=== PATIENT | female | born 1930 | race Caucasian/White ===

== ENCOUNTER 2017-02-10 16:23 | Inpatient (IN) | payer MEDICARE, BC ==
[2017-02-10 17:32] LABS: HEMATOCRIT 39 % (35-47); MEAN CORPUSCULAR HGB CONC 30.3 gm/dl (32.0-36.0)
[2017-02-10 17:37] LABS: MEAN CORPUSCULAR VOLUME 109 fL (81-99)
[2017-02-10 17:55] LABS: ALBUMIN 3.2 gm/dl (3.4-5.0); CALCIUM 7.6 mg/dl (8.5-10.1); THYROID STIMULATING HORMONE 13.001 uIU/ml (0.358-3.740)
[2017-02-10 17:56] LABS: POTASSIUM 4.5 mMol/L (3.5-5.1)
[2017-02-10] MEDS ORDERED: ALBUTEROL/IPRATROPIUM 1 VIAL SOL INH ONE (18:12)
[2017-02-10] MEDS ORDERED: ALBUTEROL/IPRATROPIUM 1 VIAL SOL ONE (18:17)
[2017-02-10 18:36] LABS: BASOPHILS % (MANUAL) 0 % (0-3); EOSINOPHILS % (MANUAL) 1 % (0-9); LYMPHOCYTES % (MANUAL) 10 % (10-50)
[2017-02-10 18:37] LABS: ANISOCYTOSIS MOD AMT
[2017-02-10 18:56] LABS: APPEARANCE,URINE Clear; BILIRUBIN,URINE NEGATIVE (NEGATIVE); COLOR,URINE Yellow; GLUCOSE, URINE (UA) NEGATIVE (NEGATIVE); KETONES,URINE NEGATIVE (NEGATIVE); LEUKOCYTE ESTERASE ,URINE TRACE (NEGATIVE); NITRATE,URINE NEGATIVE (NEGATIVE); OCCULT BLOOD,URINE NEGATIVE (NEG-TRACE); UROBILINOGEN,URINE 0.2 (0.2-1.0 EU)
[2017-02-10 19:15] LABS: RBC,URINE 0-1 (0-3AV/HPF)
[2017-02-10] MEDS ORDERED: DOCUSATE SODIUM 100 MG SGL PO PRN (20:52)
[2017-02-10] MEDS ORDERED: CALCIUM CARBONATE PO SCH (21:00)
[2017-02-10] MEDS ORDERED: FUROSEMIDE 40 MG TAB PO SCH (21:00)
[2017-02-10] MEDS ORDERED: VITAMIN D3 PO SCH (21:00)
[2017-02-10] MEDS ORDERED: [UNRECOGNIZED DRUG - OTHER] PO SCH (21:00)
[2017-02-10] MEDS: ASPIRIN EC 81 MG PO SCH (21:26)
[2017-02-10] MEDS: ASCORBIC ACID/COPPER/VITAMIN SGL PO SCH (21:29)
[2017-02-10] MEDS: ROPINIROLE HYDROCHLORIDE 0.25 MG PO SCH (21:29)
[2017-02-10] MEDS: METOPROLOL SUCCINATE 50 MG ER TAB PO SCH (21:29)
[2017-02-10] MEDS: ISOSORBIDE MONONITRATE 30 MG TER PO SCH (22:00)
[2017-02-10] MEDS: ALBUTEROL/IPRATROPIUM 1 VIAL SOL INH SCH (22:01)
[2017-02-10] MEDS: SODIUM CHLORIDE 0.9% FLUSH 10 ML SOL IV SCH (22:01)
[2017-02-10] MEDS: LATANOPROST 0.005% SOL OP SCH (22:01)
[2017-02-11] MEDS: SODIUM CHLORIDE 0.9% FLUSH 10 ML SOL IV SCH ×3 (06:14→21:02)
[2017-02-11] MEDS ORDERED: LEVOTHYROXINE SODIUM 50 MCG TAB PO SCH (07:00)
[2017-02-11 07:23] LABS: CALCIUM 7.5 mg/dl (8.5-10.1)
[2017-02-11 07:32] LABS: POTASSIUM 4.7 mMol/L (3.5-5.1)
[2017-02-11 07:46] LABS: BASOPHILS % (AUTO) 2 % (0-3); EOSINOPHILS % (AUTO) 3 % (0-9); HEMATOCRIT 36 % (35-47); MEAN CORPUSCULAR HGB CONC 32.2 gm/dl (32.0-36.0); MONOCYTES % (AUTO) 11.4 % (0-12); NEUTROPHILS % (AUTO) 68.7 % (37-80)
[2017-02-11 07:55] LABS: MEAN CORPUSCULAR VOLUME 107 fL (81-99)
[2017-02-11 08:10] LABS: ANISOCYTOSIS SLIGHT AMT
[2017-02-11] MEDS: ISOSORBIDE MONONITRATE 30 MG TER PO SCH (08:49)
[2017-02-11] MEDS: METOPROLOL SUCCINATE 50 MG ER TAB PO SCH ×2 (08:50→21:01)
[2017-02-11] MEDS: CHOLECALCIFEROL 1,000 IU TAB PO SCH (08:50)
[2017-02-11] MEDS: FUROSEMIDE 40 MG TAB PO SCH ×2 (08:50→13:40)
[2017-02-11] MEDS ORDERED: WARFARIN SODIUM 2.5 MG TAB PO SCH ×2 (09:00→18:00)
[2017-02-11] MEDS ORDERED: FUROSEMIDE 40 MG SOL IV SCH (09:00)
[2017-02-11] MEDS: ALBUTEROL/IPRATROPIUM 1 VIAL SOL INH SCH ×4 (09:13→21:02)
[2017-02-11] MEDS ORDERED: ACETAMINOPHEN 500 MG 500 MG TAB PO PRN (09:52)
[2017-02-11] MEDS ORDERED: DIPHENHYDRAMINE 25 MG CAP PO PRN (09:53)
[2017-02-11] MEDS: ROPINIROLE HYDROCHLORIDE 0.25 MG PO SCH ×2 (12:43→21:01)
[2017-02-11] MEDS: FUROSEMIDE 40 MG SOL IV SCH (14:37)
[2017-02-11] MEDS: DAPSONE 25 MG TAB PO SCH (14:57)
[2017-02-11] MEDS: LATANOPROST 0.005% SOL OP SCH (21:01)
[2017-02-11] MEDS: ASCORBIC ACID/COPPER/VITAMIN SGL PO SCH (21:01)
[2017-02-11] MEDS: ASPIRIN EC 81 MG PO SCH (21:01)
[2017-02-11] MEDS: CALCIUM CARBONATE 500 MG TAB PO SCH (21:02)
[2017-02-12] MEDS: SODIUM CHLORIDE 0.9% FLUSH 10 ML SOL IV SCH ×4 (05:52→20:52)
[2017-02-12] MEDS: LEVOTHYROXINE SODIUM 50 MCG TAB PO SCH (06:00)
[2017-02-12 07:59] LABS: BASOPHILS % (AUTO) 2 % (0-3); EOSINOPHILS % (AUTO) 2 % (0-9); HEMATOCRIT 37 % (35-47); MEAN CORPUSCULAR HGB CONC 31.1 gm/dl (32.0-36.0); MONOCYTES % (AUTO) 10.7 % (0-12); NEUTROPHILS % (AUTO) 73.4 % (37-80)
[2017-02-12 08:00] LABS: MEAN CORPUSCULAR VOLUME 106 fL (81-99)
[2017-02-12 08:03] LABS: CALCIUM 7.8 mg/dl (8.5-10.1); POTASSIUM 4.4 mMol/L (3.5-5.1)
[2017-02-12] MEDS: ISOSORBIDE MONONITRATE 30 MG TER PO SCH (09:23)
[2017-02-12] MEDS: METOPROLOL SUCCINATE 50 MG ER TAB PO SCH ×2 (09:23→20:53)
[2017-02-12] MEDS: CHOLECALCIFEROL 1,000 IU TAB PO SCH (09:24)
[2017-02-12] MEDS: FUROSEMIDE 40 MG SOL IV SCH ×2 (09:24→14:08)
[2017-02-12] MEDS: DAPSONE 25 MG TAB PO SCH (09:28)
[2017-02-12] MEDS: ALBUTEROL/IPRATROPIUM 1 VIAL SOL INH SCH ×4 (09:38→20:53)
[2017-02-12] MEDS: ROPINIROLE HYDROCHLORIDE 0.25 MG PO SCH ×2 (12:15→20:51)
[2017-02-12] MEDS ORDERED: WARFARIN SODIUM 5 MG TAB PO ONE (18:00)
[2017-02-12] MEDS: ASCORBIC ACID/COPPER/VITAMIN SGL PO SCH (20:51)
[2017-02-12] MEDS: LATANOPROST 0.005% SOL OP SCH (20:51)
[2017-02-12] MEDS: CALCIUM CARBONATE 500 MG TAB PO SCH (20:52)
[2017-02-12] MEDS: ASPIRIN EC 81 MG PO SCH (20:52)
[2017-02-13] MEDS: LEVOTHYROXINE SODIUM 50 MCG TAB PO SCH (06:11)
[2017-02-13] MEDS: SODIUM CHLORIDE 0.9% FLUSH 10 ML SOL IV SCH ×3 (06:11→21:43)
[2017-02-13 07:38] LABS: CALCIUM 7.7 mg/dl (8.5-10.1); POTASSIUM 4.1 mMol/L (3.5-5.1)
[2017-02-13 07:47] LABS: BASOPHILS % (AUTO) 2 % (0-3); EOSINOPHILS % (AUTO) 2 % (0-9); HEMATOCRIT 36 % (35-47); MEAN CORPUSCULAR HGB CONC 32.2 gm/dl (32.0-36.0); MONOCYTES % (AUTO) 11.6 % (0-12); NEUTROPHILS % (AUTO) 72.7 % (37-80)
[2017-02-13 07:55] LABS: MEAN CORPUSCULAR VOLUME 106 fL (81-99)
[2017-02-13] MEDS: METOPROLOL SUCCINATE 50 MG ER TAB PO SCH ×2 (09:18→21:33)
[2017-02-13] MEDS: DAPSONE 25 MG TAB PO SCH (09:19)
[2017-02-13] MEDS: CHOLECALCIFEROL 1,000 IU TAB PO SCH (09:19)
[2017-02-13] MEDS: ISOSORBIDE MONONITRATE 30 MG TER PO SCH (09:19)
[2017-02-13] MEDS: FUROSEMIDE 40 MG TAB PO SCH ×2 (09:20→12:36)
[2017-02-13] MEDS: ALBUTEROL/IPRATROPIUM 1 VIAL SOL INH SCH ×4 (09:20→21:39)
[2017-02-13] MEDS: ROPINIROLE HYDROCHLORIDE 0.25 MG PO SCH ×2 (12:35→21:44)
[2017-02-13] MEDS ORDERED: WARFARIN SODIUM 2.5 MG TAB PO SCH (18:00)
[2017-02-13] MEDS: ASPIRIN EC 81 MG PO SCH (21:33)
[2017-02-13] MEDS: CALCIUM CARBONATE 500 MG TAB PO SCH (21:33)
[2017-02-13] MEDS: LATANOPROST 0.005% SOL OP SCH (21:33)
[2017-02-13] MEDS: ASCORBIC ACID/COPPER/VITAMIN SGL PO SCH (21:33)
[2017-02-13 23:33] VITALS: TEMP 98
[2017-02-14] MEDS: SODIUM CHLORIDE 0.9% FLUSH 10 ML SOL IV SCH (04:22)
[2017-02-14] MEDS: LEVOTHYROXINE SODIUM 50 MCG TAB PO SCH (06:53)
[2017-02-14 07:25] LABS: BASOPHILS % (AUTO) 2 % (0-3); EOSINOPHILS % (AUTO) 3 % (0-9); HEMATOCRIT 36 % (35-47); MEAN CORPUSCULAR HGB CONC 32.4 gm/dl (32.0-36.0); MONOCYTES % (AUTO) 11.6 % (0-12); NEUTROPHILS % (AUTO) 70.9 % (37-80)
[2017-02-14 07:26] LABS: POTASSIUM 4.2 mMol/L (3.5-5.1)
[2017-02-14 07:30] LABS: MEAN CORPUSCULAR VOLUME 105 fL (81-99)
[2017-02-14 07:53] VITALS: BP 111/75
[2017-02-14] MEDS: DAPSONE 25 MG TAB PO SCH (08:40)
[2017-02-14] MEDS: METOPROLOL SUCCINATE 50 MG ER TAB PO SCH (08:41)
[2017-02-14] MEDS: FUROSEMIDE 40 MG TAB PO SCH ×2 (08:43→12:11)
[2017-02-14] MEDS: CHOLECALCIFEROL 1,000 IU TAB PO SCH (08:43)
[2017-02-14] MEDS ORDERED: PREDNISONE 20 MG TAB PO SCH (09:00)
[2017-02-14] MEDS ORDERED: CEFPROZIL 250 MG/5 ML SUSP.RECON PO SCH (09:15)
[2017-02-14] MEDS ORDERED: BUDESONIDE/FORMOTEROL 80/4.5 1 PUFF AER IH SCH (09:15)
[2017-02-14] MEDS: ALBUTEROL/IPRATROPIUM 1 VIAL SOL INH SCH (09:19)
[2017-02-14 09:23] VITALS: PULSE 75; RESP 16
[2017-02-14 09:33] VITALS: O2SAT 100
== END 2017-02-14 13:15 | DRG 292 ==
LOC: ED 16:23 → ACUTE CARE 18:59 → UNDOADMIN 18:59 → ACUTE CARE 19:35
PROVIDERS: ADMIT Emergency Medicine; ATTEND Emergency Medicine
PROC: F01ZDFZ Gait and/or Balance Assessment using Assistive, Adaptive, Supportive or Protective Equipment (ICD-10-PCS; principal; 2017-02-11)
PROC: F01ZBZZ Bed Mobility Assessment (ICD-10-PCS; 2017-02-11)
PROC: F01ZCZZ Transfer Assessment (ICD-10-PCS; 2017-02-11)
DX: I50.9 Heart failure, unspecified (principal); R17 Unspecified jaundice; I27.81 Cor pulmonale (chronic); J44.9 Chronic obstructive pulmonary disease, unspecified; D75.89 Other specified diseases of blood and blood-forming organs; Z95.0 Presence of cardiac pacemaker; R09.02 Hypoxemia; R79.82 Elevated C-reactive protein (CRP); E03.9 Hypothyroidism, unspecified; R74.0 Nonspecific elevation of levels of transaminase and lactic acid dehydrogenase [LDH]; R79.89 Other specified abnormal findings of blood chemistry; Z87.891 Personal history of nicotine dependence; Z79.01 Long term (current) use of anticoagulants; J43.1 Panlobular emphysema
CPT/HCPCS: 36415; 71020; 80048; 80053; 81001; 82248; 82550; 83735; 83880; 84443; 84484; 85007; 85025; 85027; 85610; 93005; 93012; 94150; 94640; 94762; 99222; 99284; J1940; J7620

== ENCOUNTER 2017-02-18 17:16 | Inpatient (IN) | payer MEDICARE, BC ==
[2017-02-18] MEDS ORDERED: MORPHINE SULFATE 10 MG/ML SOL IV PRN (17:24)
[2017-02-18] MEDS ORDERED: ACETAMINOPHEN 325 MG PO PRN (17:24)
[2017-02-18] MEDS ORDERED: ALUMINUM/MAGNESIUM 30 ML SUS PO PRN (17:24)
[2017-02-18] MEDS ORDERED: ALBUTEROL NEB SOL 2.5MG/3ML 1 VIAL SOL NEB PRN (17:29)
[2017-02-18] MEDS: SODIUM CHLORIDE 0.9% FLUSH 10 ML SOL IV SCH ×2 (17:30→20:09)
[2017-02-18 18:25] LABS: ALBUMIN 3.5 gm/dl (3.4-5.0); CALCIUM 7.3 mg/dl (8.5-10.1)
[2017-02-18] MEDS ORDERED: FUROSEMIDE 100 MG SOL IV SCH (19:00)
[2017-02-18] MEDS ORDERED: WARFARIN SODIUM 5 MG TAB PO SCH (20:00)
[2017-02-18] MEDS ORDERED: WARFARIN SODIUM 2.5 MG TAB ONE (20:21)
[2017-02-18] MEDS: ALLOPURINOL 100 MG TAB PO SCH (20:26)
[2017-02-18] MEDS: ALBUTEROL/IPRATROPIUM 1 VIAL SOL INH SCH (20:27)
[2017-02-18] MEDS: METOPROLOL SUCCINATE 50 MG ER TAB PO SCH (20:27)
[2017-02-18] MEDS ORDERED: CEFPROZIL 250 MG/5 ML SUSP.RECON PO ONE (20:29)
[2017-02-18] MEDS ORDERED: CEFUROXIME 250 MG/5 ML PDR PO SCH (21:00)
[2017-02-18] MEDS: CEFPROZIL 250 MG/5 ML SUSP.RECON PO SCH (22:00)
[2017-02-19] MEDS ORDERED: FUROSEMIDE 100 MG SOL IV SCH (02:00)
[2017-02-19] MEDS: SODIUM CHLORIDE 0.9% FLUSH 10 ML SOL IV SCH ×5 (02:41→17:17)
[2017-02-19] MEDS: FUROSEMIDE 100 MG SOL IV SCH ×2 (06:26→13:25)
[2017-02-19] MEDS: LEVOTHYROXINE SODIUM 50 MCG TAB PO SCH (06:26)
[2017-02-19 07:51] LABS: CALCIUM 6.9 mg/dl (8.5-10.1); POTASSIUM 4.7 mMol/L (3.5-5.1)
[2017-02-19] MEDS: DOCUSATE SODIUM 100 MG SGL PO PRN (09:14)
[2017-02-19] MEDS: METOPROLOL SUCCINATE 50 MG ER TAB PO SCH ×2 (09:14→22:30)
[2017-02-19] MEDS: CEFPROZIL 250 MG/5 ML SUSP.RECON PO SCH ×2 (09:14→20:52)
[2017-02-19] MEDS: ALLOPURINOL 100 MG TAB PO SCH ×2 (09:14→22:31)
[2017-02-19] MEDS: ALBUTEROL/IPRATROPIUM 1 VIAL SOL INH SCH ×4 (09:16→22:28)
[2017-02-19] MEDS: DAPSONE 25 MG TAB PO SCH (12:19)
[2017-02-19] MEDS ORDERED: WARFARIN SODIUM 2.5 MG TAB PO SCH ×2 (18:00)
[2017-02-20] MEDS: SODIUM CHLORIDE 0.9% FLUSH 10 ML SOL IV SCH ×5 (02:40→16:51)
[2017-02-20] MEDS: LEVOTHYROXINE SODIUM 50 MCG TAB PO SCH (06:00)
[2017-02-20] MEDS: FUROSEMIDE 100 MG SOL IV SCH ×2 (06:00→13:38)
[2017-02-20 07:35] LABS: CALCIUM 6.6 mg/dl (8.5-10.1)
[2017-02-20 07:48] LABS: BASOPHILS % (AUTO) 2 % (0-3); EOSINOPHILS % (AUTO) 2 % (0-9); HEMATOCRIT 36 % (35-47); MONOCYTES % (AUTO) 7.3 % (0-12); NEUTROPHILS % (AUTO) 80.4 % (37-80)
[2017-02-20 08:06] LABS: MEAN CORPUSCULAR VOLUME 103 fL (81-99)
[2017-02-20 08:07] LABS: ANISOCYTOSIS MOD AMT; TARGET CELLS PRESENT
[2017-02-20 08:41] LABS: POTASSIUM 3.8 mMol/L (3.5-5.1)
[2017-02-20] MEDS: DAPSONE 25 MG TAB PO SCH (08:41)
[2017-02-20] MEDS: ALLOPURINOL 100 MG TAB PO SCH ×2 (08:41→21:38)
[2017-02-20] MEDS: DOCUSATE SODIUM 100 MG SGL PO PRN (08:41)
[2017-02-20] MEDS: ALBUTEROL/IPRATROPIUM 1 VIAL SOL INH SCH ×4 (08:41→21:38)
[2017-02-20] MEDS: METOPROLOL SUCCINATE 50 MG ER TAB PO SCH ×2 (08:41→21:38)
[2017-02-20] MEDS: CEFPROZIL 250 MG/5 ML SUSP.RECON PO SCH ×2 (08:46→21:38)
[2017-02-20] MEDS ORDERED: WARFARIN SODIUM 2.5 MG TAB PO SCH (18:00)
[2017-02-21] MEDS: SODIUM CHLORIDE 0.9% FLUSH 10 ML SOL IV SCH ×5 (04:20→21:09)
[2017-02-21] MEDS: FUROSEMIDE 100 MG SOL IV SCH (06:38)
[2017-02-21] MEDS: LEVOTHYROXINE SODIUM 50 MCG TAB PO SCH (06:38)
[2017-02-21 07:23] LABS: CALCIUM 6.5 mg/dl (8.5-10.1); POTASSIUM 3.5 mMol/L (3.5-5.1)
[2017-02-21 07:30] LABS: BASOPHILS % (AUTO) 1 % (0-3); EOSINOPHILS % (AUTO) 2 % (0-9); HEMATOCRIT 35 % (35-47); MEAN CORPUSCULAR HGB CONC 33.8 gm/dl (32.0-36.0); MONOCYTES % (AUTO) 9.9 % (0-12)
[2017-02-21 07:38] LABS: MEAN CORPUSCULAR VOLUME 102 fL (81-99)
[2017-02-21 07:44] LABS: ANISOCYTOSIS SLIGHT AMT
[2017-02-21 07:45] LABS: TARGET CELLS PRESENT
[2017-02-21 08:07] LABS: APPEARANCE,URINE Cloudy; BILIRUBIN,URINE NEGATIVE (NEGATIVE); COLOR,URINE Yellow; GLUCOSE, URINE (UA) NEGATIVE (NEGATIVE); KETONES,URINE NEGATIVE (NEGATIVE); LEUKOCYTE ESTERASE ,URINE 3+ (NEGATIVE); NITRATE,URINE NEGATIVE (NEGATIVE); OCCULT BLOOD,URINE 2+ (NEG-TRACE); UROBILINOGEN,URINE 0.2 (0.2-1.0 EU)
[2017-02-21 08:19] LABS: WBC,URINE 95-100 (0-5AV/HPF)
[2017-02-21] MEDS ORDERED: BUDESONIDE 1 MG/2 ML IH SCH (09:00)
[2017-02-21] MEDS: ALLOPURINOL 100 MG TAB PO SCH ×2 (09:30→21:11)
[2017-02-21] MEDS: DOXYCYCLINE 100 MG TAB PO SCH ×2 (09:31→21:10)
[2017-02-21] MEDS: POTASSIUM CHLORIDE 10 MEQ TER PO SCH ×2 (09:31→21:11)
[2017-02-21] MEDS: FUROSEMIDE 20 MG TAB PO SCH ×2 (09:32→13:27)
[2017-02-21] MEDS: FUROSEMIDE 80 MG TAB PO SCH ×2 (09:32→13:27)
[2017-02-21] MEDS: ALBUTEROL/IPRATROPIUM 1 VIAL SOL INH SCH ×4 (09:35→21:10)
[2017-02-21] MEDS: DAPSONE 25 MG TAB PO SCH (09:50)
[2017-02-21] MEDS: METOPROLOL SUCCINATE 50 MG ER TAB PO SCH ×2 (09:50→21:10)
[2017-02-21] MEDS: BUDESONIDE 1 MG/2 ML IH SCH ×2 (13:01→21:10)
[2017-02-21] MEDS ORDERED: WARFARIN SODIUM 2.5 MG TAB PO SCH (18:00)
[2017-02-22] MEDS: SODIUM CHLORIDE 0.9% FLUSH 10 ML SOL IV SCH ×2 (00:59→09:31)
[2017-02-22] MEDS: FUROSEMIDE 80 MG TAB PO SCH ×2 (06:29→13:09)
[2017-02-22] MEDS: FUROSEMIDE 20 MG TAB PO SCH ×2 (06:29→13:09)
[2017-02-22] MEDS: LEVOTHYROXINE SODIUM 50 MCG TAB PO SCH (06:29)
[2017-02-22 08:17] VITALS: BP 98/58; RESP 20; TEMP 98.6
[2017-02-22] MEDS: ALLOPURINOL 100 MG TAB PO SCH (08:51)
[2017-02-22] MEDS: METOPROLOL SUCCINATE 50 MG ER TAB PO SCH (08:51)
[2017-02-22] MEDS: DAPSONE 25 MG TAB PO SCH (08:51)
[2017-02-22] MEDS: DOXYCYCLINE 100 MG TAB PO SCH (08:52)
[2017-02-22] MEDS: POTASSIUM CHLORIDE 10 MEQ TER PO SCH (08:52)
[2017-02-22 09:02] LABS: BASOPHILS % (AUTO) 1 % (0-3); EOSINOPHILS % (AUTO) 2 % (0-9); HEMATOCRIT 37 % (35-47); MEAN CORPUSCULAR HGB CONC 32.1 gm/dl (32.0-36.0); MONOCYTES % (AUTO) 8.8 % (0-12); NEUTROPHILS % (AUTO) 80.6 % (37-80)
[2017-02-22 09:04] LABS: MEAN CORPUSCULAR VOLUME 103 fL (81-99)
[2017-02-22] MEDS: BUDESONIDE 1 MG/2 ML IH SCH (09:25)
[2017-02-22 09:28] LABS: CALCIUM 6.5 mg/dl (8.5-10.1); POTASSIUM 3.3 mMol/L (3.5-5.1)
[2017-02-22] MEDS: ALBUTEROL/IPRATROPIUM 1 VIAL SOL INH SCH ×2 (09:28→12:56)
[2017-02-22 09:44] VITALS: PULSE 80
[2017-02-22 13:09] VITALS: O2SAT 98
== END 2017-02-22 13:20 | DRG 292 ==
LOC: ACUTE CARE 17:16
PROVIDERS: ADMIT Family Medicine; ATTEND Family Medicine
DX: I50.43 Acute on chronic combined systolic (congestive) and diastolic (congestive) heart failure (principal); N18.4 Chronic kidney disease, stage 4 (severe); I48.0 Paroxysmal atrial fibrillation; F03.90 Unspecified dementia, unspecified severity, without behavioral disturbance, psychotic disturbance, mood disturbance, and anxiety; I13.0 Hypertensive heart and chronic kidney disease with heart failure and stage 1 through stage 4 chronic kidney disease, or unspecified chronic kidney disease; N30.00 Acute cystitis without hematuria; Z79.01 Long term (current) use of anticoagulants
CPT/HCPCS: 36415; 71020; 80048; 80053; 81001; 82550; 84484; 85025; 85610; 87077; 87088; 87186; 93012; 94150; 94640; 94762; J1940; J7603; J7620; A6232

== ENCOUNTER 2017-02-25 10:00 | Inpatient (IN) | payer MEDICARE, BC ==
[2017-02-25] MEDS ORDERED: ALBUTEROL/IPRATROPIUM 1 VIAL SOL INH ONE (10:46)
[2017-02-25] MEDS ORDERED: ALBUTEROL/IPRATROPIUM 1 VIAL SOL ONE (10:50)
[2017-02-25 11:04] LABS: BASOPHILS % (AUTO) 1 % (0-3); EOSINOPHILS % (AUTO) 1 % (0-9); HEMATOCRIT 37 % (35-47); MEAN CORPUSCULAR HGB CONC 32.5 gm/dl (32.0-36.0); MONOCYTES % (AUTO) 7.8 % (0-12); NEUTROPHILS % (AUTO) 84.9 % (37-80)
[2017-02-25 11:13] LABS: MEAN CORPUSCULAR VOLUME 103 fL (81-99)
[2017-02-25 11:27] LABS: ALBUMIN 2.8 gm/dl (3.4-5.0)
[2017-02-25 11:34] LABS: CALCIUM 6.3 mg/dl (8.5-10.1)
[2017-02-25] MEDS ORDERED: FUROSEMIDE 100 MG SOL IV ONE (11:51)
[2017-02-25 11:55] LABS: APPEARANCE,URINE Cloudy; BILIRUBIN,URINE NEGATIVE (NEGATIVE); COLOR,URINE Yellow; GLUCOSE, URINE (UA) NEGATIVE (NEGATIVE); KETONES,URINE NEGATIVE (NEGATIVE); LEUKOCYTE ESTERASE ,URINE 3+ (NEGATIVE); NITRATE,URINE NEGATIVE (NEGATIVE); OCCULT BLOOD,URINE 3+ (NEG-TRACE); UROBILINOGEN,URINE 0.2 (0.2-1.0 EU)
[2017-02-25] MEDS ORDERED: FUROSEMIDE 100 MG SOL ONE (11:59)
[2017-02-25] MEDS: SODIUM CHLORIDE 0.9% FLUSH 10 ML SOL IV PRN (12:10)
[2017-02-25 12:11] LABS: RBC,URINE UNABLE (0-3AV/HPF); WBC,URINE TNTC (0-5AV/HPF)
[2017-02-25] MEDS ORDERED: NITROGLYCERIN 0.4 MG TAB SL PRN (13:15)
[2017-02-25] MEDS ORDERED: ALUMINUM/MAGNESIUM 30 ML SUS PO PRN (13:15)
[2017-02-25] MEDS ORDERED: ACETAMINOPHEN 325 MG PO PRN (13:15)
[2017-02-25] MEDS ORDERED: ALBUTEROL NEB SOL 2.5MG/3ML 1 VIAL SOL NEB PRN (13:18)
[2017-02-25] MEDS ORDERED: ONDANSETRON HCL 4 MG TAB PO PRN (13:18)
[2017-02-25] MEDS ORDERED: LEVOFLOXACIN 500 MG TAB PO SCH (13:30)
[2017-02-25] MEDS ORDERED: ACETAMINOPHEN 500 MG 500 MG TAB PO PRN (14:06)
[2017-02-25] MEDS ORDERED: DIPHENHYDRAMINE 25 MG CAP PO PRN (14:07)
[2017-02-25] MEDS: ALBUTEROL/IPRATROPIUM 1 VIAL SOL INH SCH ×2 (16:58→20:43)
[2017-02-25] MEDS: WARFARIN SODIUM 2.5 MG TAB PO SCH (17:08)
[2017-02-25] MEDS: ALLOPURINOL 100 MG TAB PO SCH (20:42)
[2017-02-25] MEDS: POTASSIUM CHLORIDE 10 MEQ TER PO SCH (20:42)
[2017-02-25] MEDS: METOPROLOL SUCCINATE 50 MG ER TAB PO SCH ×2 (20:42→20:47)
[2017-02-25] MEDS: BUDESONIDE 1 MG/2 ML IH SCH (21:00)
[2017-02-25] MEDS: ROPINIROLE HYDROCHLORIDE 0.25 MG PO SCH (21:00)
[2017-02-25] MEDS ORDERED: FUROSEMIDE 100 MG SOL IV SCH (21:00)
[2017-02-26] MEDS ORDERED: FUROSEMIDE 100 MG SOL IV SCH ×3 (06:00→14:00)
[2017-02-26] MEDS: LEVOTHYROXINE SODIUM 50 MCG TAB PO SCH (06:03)
[2017-02-26] MEDS: SODIUM CHLORIDE 0.9% FLUSH 10 ML SOL IV PRN (06:04)
[2017-02-26] MEDS: METOLAZONE 2.5 MG TAB PO SCH ×2 (06:09→09:21)
[2017-02-26 08:45] LABS: CALCIUM 6.6 mg/dl (8.5-10.1)
[2017-02-26] MEDS: METOPROLOL SUCCINATE 50 MG ER TAB PO SCH ×2 (09:00→20:02)
[2017-02-26] MEDS: LEVOFLOXACIN 500 MG TAB PO SCH (09:00)
[2017-02-26] MEDS: POTASSIUM CHLORIDE 10 MEQ TER PO SCH ×2 (09:01→20:01)
[2017-02-26] MEDS: ALLOPURINOL 100 MG TAB PO SCH ×2 (09:01→20:02)
[2017-02-26] MEDS: ALBUTEROL/IPRATROPIUM 1 VIAL SOL INH SCH ×4 (09:03→20:07)
[2017-02-26] MEDS: DAPSONE 25 MG TAB PO SCH (09:20)
[2017-02-26] MEDS: BUDESONIDE 1 MG/2 ML IH SCH ×2 (09:23→20:02)
[2017-02-26] MEDS: ROPINIROLE HYDROCHLORIDE 0.25 MG PO SCH ×2 (11:44→19:55)
[2017-02-26] MEDS: FUROSEMIDE 40 MG TAB PO SCH (13:34)
[2017-02-26] MEDS: WARFARIN SODIUM 2.5 MG TAB PO SCH (18:10)
[2017-02-26] MEDS: LATANOPROST 0.005% SOL OP SCH (20:02)
[2017-02-27] MEDS: FUROSEMIDE 40 MG TAB PO SCH ×2 (06:22→14:50)
[2017-02-27] MEDS: LEVOTHYROXINE SODIUM 50 MCG TAB PO SCH (06:23)
[2017-02-27] MEDS: METOLAZONE 2.5 MG TAB PO SCH (06:24)
[2017-02-27] MEDS: ALBUTEROL/IPRATROPIUM 1 VIAL SOL INH SCH ×4 (08:01→20:15)
[2017-02-27] MEDS: POTASSIUM CHLORIDE 10 MEQ TER PO SCH ×2 (08:05→20:13)
[2017-02-27] MEDS: METOPROLOL SUCCINATE 50 MG ER TAB PO SCH ×2 (08:06→20:14)
[2017-02-27] MEDS: DAPSONE 25 MG TAB PO SCH (08:07)
[2017-02-27] MEDS: ALLOPURINOL 100 MG TAB PO SCH ×2 (08:07→20:20)
[2017-02-27] MEDS: LEVOFLOXACIN 500 MG TAB PO SCH (08:08)
[2017-02-27] MEDS: BUDESONIDE 1 MG/2 ML IH SCH ×2 (08:09→20:17)
[2017-02-27] MEDS: ROPINIROLE HYDROCHLORIDE 0.25 MG PO SCH ×2 (11:57→20:12)
[2017-02-27] MEDS: LATANOPROST 0.005% SOL OP SCH ×2 (13:59→20:14)
[2017-02-27] MEDS: CALCIUM CARBONATE 500 MG TAB PO SCH ×2 (15:59→20:19)
[2017-02-27] MEDS: HYDROCORTISONE 1% CREAM 1 APPL CRE TOP SCH ×2 (15:59→20:19)
[2017-02-27] MEDS: WARFARIN SODIUM 2.5 MG TAB PO SCH (17:09)
[2017-02-28] MEDS: METOLAZONE 2.5 MG TAB PO SCH (06:19)
[2017-02-28] MEDS: LEVOTHYROXINE SODIUM 50 MCG TAB PO SCH (06:20)
[2017-02-28] MEDS: FUROSEMIDE 40 MG TAB PO SCH ×2 (06:22→13:51)
[2017-02-28] MEDS: ALBUTEROL/IPRATROPIUM 1 VIAL SOL INH SCH ×4 (09:00→20:45)
[2017-02-28] MEDS: POTASSIUM CHLORIDE 10 MEQ TER PO SCH ×2 (09:07→20:46)
[2017-02-28] MEDS: DAPSONE 25 MG TAB PO SCH (09:08)
[2017-02-28] MEDS: BUDESONIDE 1 MG/2 ML IH SCH ×2 (09:08→20:47)
[2017-02-28] MEDS: ALLOPURINOL 100 MG TAB PO SCH ×2 (09:08→20:47)
[2017-02-28] MEDS: LEVOFLOXACIN 500 MG TAB PO SCH (09:09)
[2017-02-28] MEDS: CALCIUM CARBONATE 500 MG TAB PO SCH ×2 (09:11→20:52)
[2017-02-28] MEDS: HYDROCORTISONE 1% CREAM 1 APPL CRE TOP SCH ×2 (09:12→20:52)
[2017-02-28 10:05] LABS: POTASSIUM 3.5 mMol/L (3.5-5.1)
[2017-02-28] MEDS: METOPROLOL SUCCINATE 50 MG ER TAB PO SCH (11:10)
[2017-02-28] MEDS: ROPINIROLE HYDROCHLORIDE 0.25 MG PO SCH ×2 (12:04→20:45)
[2017-02-28] MEDS: WARFARIN SODIUM 2.5 MG TAB PO SCH (17:27)
[2017-02-28] MEDS: LATANOPROST 0.005% SOL OP SCH (20:47)
[2017-03-01] MEDS: LEVOTHYROXINE SODIUM 50 MCG TAB PO SCH (06:52)
[2017-03-01] MEDS: FUROSEMIDE 40 MG TAB PO SCH (06:52)
[2017-03-01 07:33] LABS: CALCIUM 7.5 mg/dl (8.5-10.1); POTASSIUM 3.6 mMol/L (3.5-5.1)
[2017-03-01 07:51] VITALS: BP 120/70; TEMP 96.9; O2SAT 94
[2017-03-01] MEDS: ALLOPURINOL 100 MG TAB PO SCH (08:57)
[2017-03-01] MEDS ORDERED: ERTAPENEM SODIUM 1 GM PDS 1 GM in SODIUM CHLORIDE 0.9% 50 ML 50 ML IV SCH (09:00)
[2017-03-01] MEDS: CALCIUM CARBONATE 500 MG TAB PO SCH (09:02)
[2017-03-01] MEDS: HYDROCORTISONE 1% CREAM 1 APPL CRE TOP SCH (09:07)
[2017-03-01] MEDS: ALBUTEROL/IPRATROPIUM 1 VIAL SOL INH SCH (09:13)
[2017-03-01 09:14] VITALS: RESP 20
[2017-03-01] MEDS: POTASSIUM CHLORIDE 10 MEQ TER PO SCH (09:14)
[2017-03-01] MEDS: METOPROLOL SUCCINATE 50 MG ER TAB PO SCH (09:16)
[2017-03-01] MEDS: BUDESONIDE 1 MG/2 ML IH SCH (09:20)
[2017-03-01 09:23] VITALS: PULSE 76
[2017-03-01] MEDS: DAPSONE 25 MG TAB PO SCH (09:42)
== END 2017-03-01 10:30 | disposition swing bed (61) | DRG 292 ==
LOC: ED 10:00 → ACUTE CARE 13:06 → UNDOADMIN 13:06 → ACUTE CARE 13:45
PROVIDERS: ADMIT Family Medicine; ATTEND Family Medicine
DX: I50.43 Acute on chronic combined systolic (congestive) and diastolic (congestive) heart failure (principal); N30.00 Acute cystitis without hematuria; I48.0 Paroxysmal atrial fibrillation; I11.0 Hypertensive heart disease with heart failure; E03.9 Hypothyroidism, unspecified; J43.1 Panlobular emphysema
CPT/HCPCS: 36415; 71010; 80048; 80053; 81001; 82310; 83880; 84484; 85025; 85610; 94640; 94760; 96374; 99231; 99284; J1940; J7620

== ENCOUNTER 2017-03-01 09:50 | Inpatient (IN) | payer MEDICARE, BC ==
[2017-03-01] MEDS ORDERED: ONDANSETRON HCL 4 MG TAB PO PRN (10:33)
[2017-03-01] MEDS ORDERED: DOCUSATE SODIUM 100 MG SGL PO PRN (10:33)
[2017-03-01] MEDS ORDERED: ALBUTEROL NEB SOL 2.5MG/3ML 1 VIAL SOL NEB PRN (10:33)
[2017-03-01] MEDS ORDERED: ERTAPENEM SODIUM 1 GM PDS IV SCH (11:00)
[2017-03-01] MEDS ORDERED: ACETAMINOPHEN 500 MG 500 MG TAB PO PRN (11:22)
[2017-03-01] MEDS ORDERED: DIPHENHYDRAMINE 25 MG CAP PO PRN (11:23)
[2017-03-01] MEDS: ERTAPENEM SODIUM 1 GM IV SCH (11:33)
[2017-03-01] MEDS: SODIUM CHLORIDE 0.9% IV SCH (11:33)
[2017-03-01] MEDS: SODIUM CHLORIDE 0.9% FLUSH 10 ML SOL IV SCH ×2 (11:34→18:22)
[2017-03-01] MEDS: ROPINIROLE HYDROCHLORIDE 0.25 MG PO SCH ×2 (12:21→21:16)
[2017-03-01] MEDS: ALBUTEROL/IPRATROPIUM 1 VIAL SOL INH SCH ×3 (12:25→21:19)
[2017-03-01] MEDS: FUROSEMIDE 20 MG TAB PO SCH (13:58)
[2017-03-01] MEDS: FUROSEMIDE 80 MG TAB PO SCH (13:59)
[2017-03-01] MEDS ORDERED: WARFARIN SODIUM 3 MG TAB PO SCH (18:00)
[2017-03-01] MEDS: POTASSIUM CHLORIDE 10 MEQ TER PO SCH (21:16)
[2017-03-01] MEDS: BUDESONIDE 1 MG/2 ML IH SCH (21:17)
[2017-03-01] MEDS: CALCIUM CARBONATE 500 MG TAB PO SCH (21:17)
[2017-03-01] MEDS: ALLOPURINOL 100 MG TAB PO SCH (21:17)
[2017-03-02] MEDS: SODIUM CHLORIDE 0.9% FLUSH 10 ML SOL IV SCH ×3 (03:37→19:13)
[2017-03-02] MEDS: FUROSEMIDE 80 MG TAB PO SCH ×2 (06:37→13:38)
[2017-03-02] MEDS: FUROSEMIDE 20 MG TAB PO SCH ×2 (06:37→13:37)
[2017-03-02] MEDS: LEVOTHYROXINE SODIUM 50 MCG TAB PO SCH (06:37)
[2017-03-02] MEDS: ASPIRIN EC 81 MG PO SCH (08:55)
[2017-03-02] MEDS: LATANOPROST 0.005% SOL OP SCH (08:56)
[2017-03-02] MEDS: VIT C PO SCH (08:56)
[2017-03-02] MEDS: VIT A PO SCH (08:56)
[2017-03-02] MEDS: COPPER PO SCH (08:56)
[2017-03-02] MEDS: CHOLECALCIFEROL 1,000 IU TAB PO SCH (08:56)
[2017-03-02] MEDS: ZINC PO SCH (08:56)
[2017-03-02] MEDS: DAPSONE 25 MG PO SCH (08:56)
[2017-03-02] MEDS: VIT E PO SCH (08:56)
[2017-03-02] MEDS: METOPROLOL SUCCINATE 50 MG ER TAB PO SCH (08:56)
[2017-03-02] MEDS: [UNRECOGNIZED DRUG - OTHER] PO SCH (08:56)
[2017-03-02] MEDS: POTASSIUM CHLORIDE 10 MEQ TER PO SCH ×2 (08:56→20:13)
[2017-03-02] MEDS: CALCIUM CARBONATE 500 MG TAB PO SCH ×2 (08:56→20:13)
[2017-03-02] MEDS: ALLOPURINOL 100 MG TAB PO SCH ×2 (08:57→20:13)
[2017-03-02] MEDS ORDERED: METOLAZONE 2.5 MG TAB PO SCH (09:00)
[2017-03-02] MEDS: BUDESONIDE 1 MG/2 ML IH SCH ×2 (09:02→21:23)
[2017-03-02] MEDS: ALBUTEROL/IPRATROPIUM 1 VIAL SOL INH SCH ×4 (09:02→20:14)
[2017-03-02] MEDS ORDERED: ERTAPENEM SODIUM 1 GM PDS ONE (10:55)
[2017-03-02] MEDS ORDERED: SODIUM CHLORIDE 0.9% 100 ML 100 ML IV ONE (10:56)
[2017-03-02] MEDS: SODIUM CHLORIDE 0.9% IV SCH (11:10)
[2017-03-02] MEDS: ROPINIROLE HYDROCHLORIDE 0.25 MG PO SCH ×2 (11:10→20:12)
[2017-03-02] MEDS: ERTAPENEM SODIUM 1 GM IV SCH (11:10)
[2017-03-02 12:11] LABS: CALCIUM 7.6 mg/dl (8.5-10.1); POTASSIUM 4.4 mMol/L (3.5-5.1)
[2017-03-02] MEDS: WARFARIN SODIUM 3 MG TAB PO SCH (17:27)
[2017-03-03] MEDS: SODIUM CHLORIDE 0.9% FLUSH 10 ML SOL IV SCH ×4 (02:51→18:22)
[2017-03-03] MEDS: LEVOTHYROXINE SODIUM 50 MCG TAB PO SCH (07:13)
[2017-03-03 08:44] LABS: CALCIUM 7.5 mg/dl (8.5-10.1); POTASSIUM 3.7 mMol/L (3.5-5.1)
[2017-03-03] MEDS: COPPER PO SCH (09:30)
[2017-03-03] MEDS: ZINC PO SCH (09:30)
[2017-03-03] MEDS: VIT E PO SCH (09:30)
[2017-03-03] MEDS: VIT A PO SCH (09:30)
[2017-03-03] MEDS: [UNRECOGNIZED DRUG - OTHER] PO SCH (09:30)
[2017-03-03] MEDS: VIT C PO SCH (09:30)
[2017-03-03] MEDS: ASPIRIN EC 81 MG PO SCH (09:31)
[2017-03-03] MEDS: CHOLECALCIFEROL 1,000 IU TAB PO SCH (09:31)
[2017-03-03] MEDS: POTASSIUM CHLORIDE 10 MEQ TER PO SCH ×2 (09:31→21:17)
[2017-03-03] MEDS: CALCIUM CARBONATE 500 MG TAB PO SCH ×3 (09:32→21:17)
[2017-03-03] MEDS: DAPSONE 25 MG PO SCH (09:33)
[2017-03-03] MEDS: FUROSEMIDE 40 MG TAB PO SCH ×2 (09:34→13:04)
[2017-03-03] MEDS: ALLOPURINOL 100 MG TAB PO SCH ×2 (09:34→21:17)
[2017-03-03] MEDS: LATANOPROST 0.005% SOL OP SCH (09:35)
[2017-03-03] MEDS: BUDESONIDE 1 MG/2 ML IH SCH ×2 (09:35→21:40)
[2017-03-03] MEDS: ALBUTEROL/IPRATROPIUM 1 VIAL SOL INH SCH ×4 (09:45→21:15)
[2017-03-03] MEDS ORDERED: SODIUM CHLORIDE 0.9% 100 ML 100 ML IV ONE (11:31)
[2017-03-03] MEDS ORDERED: ERTAPENEM SODIUM 1 GM PDS ONE (11:31)
[2017-03-03] MEDS: ERTAPENEM SODIUM 1 GM IV SCH (11:39)
[2017-03-03] MEDS: SODIUM CHLORIDE 0.9% IV SCH (11:39)
[2017-03-03] MEDS: FUROSEMIDE 20 MG TAB PO SCH (12:21)
[2017-03-03] MEDS: FUROSEMIDE 80 MG TAB PO SCH (12:21)
[2017-03-03] MEDS: ROPINIROLE HYDROCHLORIDE 0.25 MG PO SCH ×2 (12:47→21:15)
[2017-03-03] MEDS: WARFARIN SODIUM 3 MG TAB PO SCH (18:07)
[2017-03-04] MEDS: SODIUM CHLORIDE 0.9% FLUSH 10 ML SOL IV SCH ×3 (03:43→20:07)
[2017-03-04] MEDS: LEVOTHYROXINE SODIUM 50 MCG TAB PO SCH (06:34)
[2017-03-04] MEDS: FUROSEMIDE 40 MG TAB PO SCH ×2 (06:34→13:03)
[2017-03-04 07:23] LABS: CALCIUM 7.5 mg/dl (8.5-10.1); POTASSIUM 3.9 mMol/L (3.5-5.1)
[2017-03-04 07:25] LABS: BASOPHILS % (AUTO) 1 % (0-3); EOSINOPHILS % (AUTO) 4 % (0-9); HEMATOCRIT 42 % (35-47); MEAN CORPUSCULAR HGB CONC 32.8 gm/dl (32.0-36.0); MONOCYTES % (AUTO) 10.1 % (0-12); NEUTROPHILS % (AUTO) 67.7 % (37-80)
[2017-03-04 07:32] LABS: MEAN CORPUSCULAR VOLUME 101 fL (81-99)
[2017-03-04] MEDS: POTASSIUM CHLORIDE 10 MEQ TER PO SCH ×2 (08:29→20:07)
[2017-03-04] MEDS: ASPIRIN EC 81 MG PO SCH (08:29)
[2017-03-04] MEDS: [UNRECOGNIZED DRUG - OTHER] PO SCH (08:30)
[2017-03-04] MEDS: CHOLECALCIFEROL 1,000 IU TAB PO SCH (08:30)
[2017-03-04] MEDS: VIT A PO SCH (08:30)
[2017-03-04] MEDS: VIT C PO SCH (08:30)
[2017-03-04] MEDS: VIT E PO SCH (08:30)
[2017-03-04] MEDS: CALCIUM CARBONATE 500 MG TAB PO SCH ×3 (08:30→20:07)
[2017-03-04] MEDS: ZINC PO SCH (08:30)
[2017-03-04] MEDS: COPPER PO SCH (08:30)
[2017-03-04] MEDS: LATANOPROST 0.005% SOL OP SCH (08:31)
[2017-03-04] MEDS: ALLOPURINOL 100 MG TAB PO SCH ×2 (08:32→20:09)
[2017-03-04] MEDS: ALBUTEROL/IPRATROPIUM 1 VIAL SOL INH SCH ×4 (08:35→20:09)
[2017-03-04] MEDS: BUDESONIDE 1 MG/2 ML IH SCH ×2 (08:37→20:08)
[2017-03-04] MEDS: DAPSONE 25 MG PO SCH (10:43)
[2017-03-04] MEDS ORDERED: SODIUM CHLORIDE 0.9% 100 ML 100 ML IV ONE (11:17)
[2017-03-04] MEDS ORDERED: ERTAPENEM SODIUM 1 GM PDS ONE (11:17)
[2017-03-04] MEDS: ROPINIROLE HYDROCHLORIDE 0.25 MG PO SCH ×2 (11:21→20:07)
[2017-03-04] MEDS: ERTAPENEM SODIUM 1 GM IV SCH (11:22)
[2017-03-04] MEDS: SODIUM CHLORIDE 0.9% IV SCH (11:22)
[2017-03-04 12:24] VITALS: RESP 18; TEMP 98.2
[2017-03-04] MEDS ORDERED: WARFARIN SODIUM 2.5 MG TAB PO SCH (18:00)
[2017-03-05] MEDS ORDERED: ERTAPENEM SODIUM 1 GM PDS ONE (05:46)
[2017-03-05] MEDS ORDERED: SODIUM CHLORIDE 0.9% 100 ML 100 ML IV ONE (05:48)
[2017-03-05] MEDS: LEVOTHYROXINE SODIUM 50 MCG TAB PO SCH (06:15)
[2017-03-05] MEDS: SODIUM CHLORIDE 0.9% FLUSH 10 ML SOL IV SCH ×2 (06:15→10:46)
[2017-03-05] MEDS: FUROSEMIDE 40 MG TAB PO SCH (06:15)
[2017-03-05 07:43] LABS: BASOPHILS % (AUTO) 2 % (0-3); EOSINOPHILS % (AUTO) 5 % (0-9); HEMATOCRIT 40 % (35-47); MEAN CORPUSCULAR HGB CONC 32.4 gm/dl (32.0-36.0); MONOCYTES % (AUTO) 10.1 % (0-12); NEUTROPHILS % (AUTO) 64.8 % (37-80)
[2017-03-05 07:44] LABS: CALCIUM 7.6 mg/dl (8.5-10.1)
[2017-03-05 07:46] LABS: MEAN CORPUSCULAR VOLUME 101 fL (81-99)
[2017-03-05 09:29] VITALS: BP 99/65
[2017-03-05] MEDS: ALBUTEROL/IPRATROPIUM 1 VIAL SOL INH SCH (09:30)
[2017-03-05] MEDS: DAPSONE 25 MG PO SCH (09:31)
[2017-03-05] MEDS: CALCIUM CARBONATE 500 MG TAB PO SCH (09:32)
[2017-03-05] MEDS: BUDESONIDE 1 MG/2 ML IH SCH (09:32)
[2017-03-05] MEDS: POTASSIUM CHLORIDE 10 MEQ TER PO SCH (09:32)
[2017-03-05] MEDS: CHOLECALCIFEROL 1,000 IU TAB PO SCH (09:33)
[2017-03-05] MEDS: ALLOPURINOL 100 MG TAB PO SCH (09:34)
[2017-03-05] MEDS: LATANOPROST 0.005% SOL OP SCH (09:34)
[2017-03-05] MEDS: METOPROLOL SUCCINATE 50 MG ER TAB PO SCH (09:37)
[2017-03-05] MEDS: ASPIRIN EC 81 MG PO SCH (09:38)
[2017-03-05] MEDS: ZINC PO SCH (09:39)
[2017-03-05] MEDS: COPPER PO SCH (09:39)
[2017-03-05] MEDS: [UNRECOGNIZED DRUG - OTHER] PO SCH (09:39)
[2017-03-05] MEDS: VIT E PO SCH (09:39)
[2017-03-05] MEDS: VIT C PO SCH (09:39)
[2017-03-05] MEDS: VIT A PO SCH (09:39)
[2017-03-05 09:40] VITALS: PULSE 78; O2SAT 99
[2017-03-05] MEDS: SODIUM CHLORIDE 0.9% IV SCH (10:46)
[2017-03-05] MEDS: ERTAPENEM SODIUM 1 GM IV SCH (10:46)
[2017-03-05] MEDS: ROPINIROLE HYDROCHLORIDE 0.25 MG PO SCH (11:33)
== END 2017-03-05 12:40 | DRG 683 ==
LOC: ACUTE CARE 10:35
PROVIDERS: ADMIT Family Medicine; ATTEND Family Medicine
DX: N18.4 Chronic kidney disease, stage 4 (severe) (principal); I13.0 Hypertensive heart and chronic kidney disease with heart failure and stage 1 through stage 4 chronic kidney disease, or unspecified chronic kidney disease; I50.9 Heart failure, unspecified
CPT/HCPCS: 36415; 80048; 85025; 85610; J1335; J7620

== ENCOUNTER 2018-05-11 10:15 | Emergency (ER) | payer MEDICARE, BC ==
[2018-05-11 16:22] VITALS: BP 105/67; PULSE 74; RESP 16; TEMP 97.6; O2SAT 96
== END 2018-05-11 11:45 | disposition home or self-care (01) | DRG 153 ==
LOC: ED 10:15
DX: J06.9 Acute upper respiratory infection, unspecified (principal)
CPT/HCPCS: 71045; 99282; 99283

== ENCOUNTER 2018-08-15 17:27 | Emergency (ER) | payer MEDICARE, BC ==
[2018-08-15] MEDS ORDERED: FENTANYL 100MCG/2ML SOL IV ONE ×2 (17:42→18:48)
[2018-08-15] MEDS ORDERED: SODIUM CHLORIDE 0.9% 250 ML 250 ML IV SCH (17:45)
[2018-08-15 17:52] LABS: BASOPHILS % (AUTO) 1 % (0-3); EOSINOPHILS % (AUTO) 3 % (0-9); HEMATOCRIT 36 % (35-47); HEMOGLOBIN 11.1 gm/dl (12.0-15.5); LYMPHOCYTES % (AUTO) 20.2 % (10-50); MEAN CORPUSCULAR HEMOGLOBIN 34.4 pg (27.0-32.0); MEAN CORPUSCULAR HGB CONC 30.8 gm/dl (32.0-36.0); MONOCYTES % (AUTO) 8.7 % (0-12); NEUTROPHILS % (AUTO) 67.2 % (37-80)
[2018-08-15 17:54] LABS: MEAN CORPUSCULAR VOLUME 112 fL (81-99)
[2018-08-15 17:58] LABS: INR 2.21 (0.86-1.12)
[2018-08-15 18:07] LABS: ALBUMIN 3.9 gm/dl (3.4-5.0); BILIRUBIN,TOTAL 1.2 mg/dl (0.2-1.0); CALCIUM 7.2 mg/dl (8.5-10.1); CREATININE 2.38 mg/dl (0.60-1.00); POTASSIUM 4.1 mMol/L (3.5-5.1); TOTAL PROTEIN 7.7 gm/dl (6.4-8.2); TROP I 0.02 ng/ml (0.000-0.056)
[2018-08-15] MEDS ORDERED: FENTANYL 100MCG/2ML SOL ONE ×2 (18:07→18:50)
[2018-08-15] MEDS ORDERED: SODIUM CHLORIDE 0.9% FLUSH 10 ML SOL IV PRN (18:15)
[2018-08-15 18:25] LABS: ANISOCYTOSIS MOD AMT
[2018-08-15] MEDS ORDERED: LACTATED RINGERS 1,000 ML IV SCH (18:30)
[2018-08-15] MEDS ORDERED: ONDANSETRON HCL 4 MG/2 ML SOL IV ONE (18:48)
[2018-08-15] MEDS ORDERED: PHYTONADIONE 1 MG/0.5 ML SOL IM ONE (18:51)
[2018-08-15] MEDS: PHYTONADIONE IV ONE ×2 (18:51)
[2018-08-15] MEDS ORDERED: ONDANSETRON HCL 4 MG/2 ML SOL ONE (18:51)
[2018-08-15] MEDS: SODIUM CHLORIDE 0.9% IV ONE ×2 (18:51)
[2018-08-15] MEDS ORDERED: PHYTONADIONE 10 MG/ML SOL ONE (18:52)
[2018-08-15 18:54] LABS: APPEARANCE,URINE Clear; BILIRUBIN,URINE NEGATIVE (NEGATIVE); COLOR,URINE Yellow; GLUCOSE, URINE (UA) NEGATIVE (NEGATIVE); KETONES,URINE NEGATIVE (NEGATIVE); LEUKOCYTE ESTERASE ,URINE NEGATIVE (NEGATIVE); NITRATE,URINE NEGATIVE (NEGATIVE); OCCULT BLOOD,URINE NEGATIVE (NEG-TRACE); PH,URINE 5.5; UROBILINOGEN,URINE 0.2 (0.2-1.0 EU)
[2018-08-15 19:01] LABS: BACTERIA RARE (< 1+); CRYSTALS NEGATIVE (0-3 AVE/HPF); EPITHELIAL CELLS 0-2 (SQUAMOUS); WBC,URINE 0-2 (0-5AV/HPF)
[2018-08-15] MEDS ORDERED: ALBUTEROL/IPRATROPIUM 1 VIAL SOL INH ONE (19:05)
[2018-08-15] MEDS ORDERED: ALBUTEROL/IPRATROPIUM 1 VIAL SOL ONE ×2 (19:09→19:26)
[2018-08-15] MEDS: ACETAMINOPHEN 1,000 MG/100 ML VIAL IV ONE ×2 (19:19)
[2018-08-15] MEDS ORDERED: ALBUTEROL NEB SOL 2.5MG/3ML 1 VIAL SOL NEB ONE (19:25)
[2018-08-15] MEDS ORDERED: DEXTROSE IV NR (19:30)
[2018-08-15] MEDS ORDERED: SOLUMEDROL IV NR (19:30)
[2018-08-15 19:42] LABS: ABG PH 7.32 (7.35-7.45)
[2018-08-15] MEDS ORDERED: NALOXONE HYDROCHLORIDE 0.4 MG/ML SOL ONE (19:45)
[2018-08-15] MEDS ORDERED: NALOXONE HYDROCHLORIDE 0.4 MG/ML SOL IV ONE (19:45)
[2018-08-15 20:04] LABS: ABG PH 7.4 (7.35-7.45)
[2018-08-15 20:44] VITALS: PULSE 70
[2018-08-15 21:02] LABS: ABG PH 7.42 (7.35-7.45)
[2018-08-15 21:43] VITALS: TEMP 97.4
[2018-08-15 22:05] VITALS: BP 102/72; RESP 22; O2SAT 96
== END 2018-08-15 21:35 | disposition short-term general hospital (02) | DRG 536 ==
LOC: ED 17:27
DX: S72.002A Fracture of unspecified part of neck of left femur, initial encounter for closed fracture (principal); N18.4 Chronic kidney disease, stage 4 (severe); J43.1 Panlobular emphysema; I50.9 Heart failure, unspecified; Z79.01 Long term (current) use of anticoagulants; W19.XXXA Unspecified fall, initial encounter; Y92.129 Unspecified place in nursing home as the place of occurrence of the external cause
CPT/HCPCS: 36415; 36600; 70450; 71045; 72125; 73501; 80053; 81001; 82803; 83880; 84484; 85025; 85610; 93005; 96372; 96374; 96375; 99070; 99284; 99285; J2310; J2405; J3010; J3430; J0131